=== PATIENT | male | born 1990 | race American Indian/Alaskan Native ===

== ENCOUNTER 2017-11-06 15:23 | Observation (INO) | payer BC ==
[2017-11-06] MEDS ORDERED: Benzoin Compound Tincture (60 ml) ONE (15:41)
[2017-11-06] MEDS ORDERED: Albuterol 0.083% Inhal Sol (2.5 mg/3 mL) UD IH STA ×3 (16:03→17:42)
[2017-11-06] MEDS ORDERED: Albuterol-Ipratrop 3 mg / 0.5 (3 ml) UD INH STA (16:03)
[2017-11-06] MEDS ORDERED: Albuterol-Ipratrop 3 mg / 0.5 (3 ml) UD ONE ×2 (16:11→17:46)
[2017-11-06 16:15] LABS: BASO # 0.2 K/uL (0.0-0.2); BASO % 1.6 % (0.0-2.0); EOS # 0.5 K/uL (0.0-0.7); EOS % 4.6 % (0.0-4.0); HEMOGLOBIN 15.8 g/dL (12.0-18.0); LYMPH # 1.8 K/uL (1.0-4.3); LYMPH % 15.1 % (20.0-40.0); MEAN CELL VOLUME 91.6 fL (80.0-94.0); MEAN CORPUSCULAR HEMOGLOBIN 31.6 pg (27.0-31.0); MEAN CORPUSCULAR HGB CONC 34.5 g/dL (33.0-37.0); MEAN PLATELET VOLUME 9.5 fL (7.2-11.7); MONO # 0.9 K/uL (0.0-0.8); MONO % 7.4 % (0.0-10.0); NEUT # 8.4 K/uL (1.8-7.0); NEUT % 71.3 % (50.0-75.0); NRBC % 0.1 % (0.0-2.0); RED CELL DISTRIBUTION WIDTH 12.5 % (11.5-14.5); WHITE BLOOD COUNT 11.8 K/uL (4.8-10.8)
[2017-11-06] MEDS ORDERED: Albuterol 0.083% Inhal Sol (2.5 mg/3 mL) UD ONE (16:20)
[2017-11-06 16:30] LABS: ALB/GLOB RATIO 1.1 (1.0-2.1); ALBUMIN 4.2 g/dL (3.5-5.0); CALCIUM 9.2 mg/dl (8.6-10.4); GFR AFRICAN-AMERICAN > 60; GFR NON-AFRICAN AMERICAN > 60
[2017-11-06 16:34] LABS: ALT/SGPT 28 U/L (21-72); AST/SGOT 33 U/L (17-59); BLOOD UREA NITROGEN 15 mg/dL (9-20)
--- NOTE | 2017-11-06 16:48 | C.PDOC ---
History Of Present Illness 27-year-old male, presents to the emergency department, [place] from work with complaints of shortness of breath and wheezing since yesterday. Patient states symptoms worsened today. He was using his inhaler with minimal relief. Patient has never been admitted or intubated for asthma. He denies chest pain, fever, back pain, nausea/vomiting or any other associated symptoms. No other complaints at this time. Patient was given Solumedrol, Mag sulfate and duoneb on field. No other complaints at this time. Time Seen by Provider: 11/06/17 15:36 Chief Complaint (Nursing): Respiratory Distress History Per: Patient, EMS History/Exam Limitations: no limitations Current Symptoms Are (Timing): Still Present Past Medical History Reviewed: Historical Data, Nursing Documentation, Vital Signs Vital Signs: Last Vital Signs Temp 97.6 F 11/06/17 17:05 Pulse 101 H 11/06/17 17:05 Resp 13 11/06/17 17:05 BP 108/64 11/06/17 17:05 Pulse Ox 96 11/06/17 17:05 - Medical History PMH: Asthma Denies: Chronic Kidney Disease Family History: States: No Known Family Hx - Social History Hx Alcohol Use: Yes Hx Substance Use: No Review Of Systems Constitutional: Negative for: Fever Cardiovascular: Positive for: Other (chest tightness). Negative for: Chest Pain , Palpitations Respiratory: Positive for: Shortness of Breath, Wheezing Gastrointestinal: Negative for: Vomiting Musculoskeletal: Negative for: Neck Pain, Back Pain Skin: Negative for: Rash Neurological: Negative for: Weakness, Numbness, Headache, Dizziness Physical Exam - Physical Exam Appears: Non-toxic, No Acute Distress, Other (speaking in full sentences) Skin: Normal Color, Warm, Dry, No Rash Head: Atraumatic, Normacephalic Eye(s): bilateral: PERRL Nose: Normal Oral Mucosa: Moist Lips: Normal Appearing Neck: Normal ROM Cardiovascular: Rhythm Regular (Tachycardic), No Murmur Respiratory: No Decreased Breath Sounds, No Accessory Muscle Use, No Rales, No Rhonchi, Wheezing (diffuse, expiratory) Gastrointestinal/Abdominal: Soft, No Tenderness Extremity: Normal ROM, No Deformity, No Swelling Neurological/Psych: Oriented x3, Normal Speech ED Course And Treatment - Laboratory Results Result Diagrams: 11/06/17 16:12 11/06/17 16:12 ECG: Interpreted By Me, Viewed By Me (NSR 100bpm, normal axis, RBBB, no acute ST changes) ECG Interpretation: No Acute Changes O2 Sat by Pulse Oximetry: 94 Pulse Ox Interpretation: Abnormal Progress Note: Chest X-Ray, Bloodwork ordered and reviewed. Patient treated with Albuterol. Duoneb and Terbutaline. Disposition - Disposition Forms: [facility] (Lao) - Scribe Statement The provider has reviewed the documentation as recorded by the Scribe (Felipa Nick) All medical record entries made by the Scribe were at my direction and personally dictated by me. I have reviewed the chart and agree that the record accurately reflects my personal performance of the history, physical exam, medical decision making, and the department course for this patient. I have also personally directed, reviewed, and agree with the discharge instructions and disposition.
--- NOTE | 2017-11-06 17:08 | RAD ---
PROCEDURE: CHEST RADIOGRAPH, 1 VIEW HISTORY: SOB COMPARISON: Addendum the mid its body extra-articular at with current at bedtime FINDINGS: LUNGS: Clear. PLEURA: No pneumothorax or pleural fluid seen. CARDIOVASCULAR: Normal. OSSEOUS STRUCTURES: No significant abnormalities. VISUALIZED UPPER ABDOMEN: Normal. OTHER FINDINGS: None. IMPRESSION: No active disease.
[2017-11-06] MEDS ORDERED: Albuterol 0.083% Inhal Sol (2.5 mg/3 mL) UD IH PRN (18:26)
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
[2017-11-06] MEDS ORDERED: MethylPREDNISolone 40 mg Vial ONE (23:31)
[2017-11-06] MEDS: MethylPREDNISolone 40 mg Vial IVP SCH (23:35)
[2017-11-07] MEDS: Azithromycin 500 MG in Sodium Chloride 0.9% 250 ML IVPB SCH ×2 (01:06→11:00)
[2017-11-07] MEDS ORDERED: Albuterol-Ipratrop 3 mg / 0.5 (3 ml) UD ONE (01:52)
[2017-11-07] MEDS ORDERED: Albuterol-Ipratrop 3 mg / 0.5 (3 ml) UD INH SCH (02:00)
[2017-11-07] MEDS ORDERED: MethylPREDNISolone 40 mg Vial ONE (06:58)
[2017-11-07] MEDS: MethylPREDNISolone 40 mg Vial IVP SCH ×2 (06:59→13:34)
[2017-11-07] MEDS ORDERED: Fluticasone-Salmeterol 250-50mcg Diskus INH SCH (08:00)
[2017-11-07] MEDS ORDERED: Enoxaparin 40 mg Syringe SC SCH (10:00)
[2017-11-07 10:38] VITALS: BP 123/64; RESP 20; TEMP 98.1
--- NOTE | 2017-11-07 12:44 | CP.PCM.PN ---
Subjective - Date & Time of Evaluation Date of Evaluation: 11/07/17 Time of Evaluation: 09:00 - Subjective Subjective: clinically same Objective - Vital Signs/Intake and Output Vital Signs (last 24 hours): Temp Pulse Resp BP Pulse Ox 98.1 F 76 20 123/64 97 11/07/17 09:50 11/07/17 09:50 11/07/17 09:50 11/07/17 09:50 11/07/17 09:50 - Medications Medications: Current Medications Albuterol Sulfate (Albuterol 0.083% Inhal Silvia (2.5 Mg/3 Ml) Ud) 2.5 mg IH Q2 PRN PRN Reason: Wheezing Albuterol/Ipratropium (Duoneb 3 Mg/0.5 Mg (3 Ml) Ud) 3 ml INH RQ6 [facility] Last Admin: 11/07/17 01:56 Dose: 3 ml Enoxaparin Sodium (Lovenox) 40 mg SC DAILY [facility] Last Admin: 11/07/17 11:00 Dose: Not Given Azithromycin 500 mg/ Sodium (Chloride) 250 mls @ 250 mls/hr IVPB DAILY [facility] PRN Reason: Protocol Last Admin: 11/07/17 11:00 Dose: 250 mls/hr Ceftriaxone Sodium 1 gm/ (Sodium Chloride) 100 mls @ 100 mls/hr IVPB DAILY [facility] PRN Reason: Protocol Last Admin: 11/07/17 10:20 Dose: 100 mls/hr Methylprednisolone (Solu-Medrol) 40 mg IVP Q8 [facility] Last Admin: 11/07/17 06:59 Dose: 40 mg Montelukast Sodium (Singulair) 10 mg PO HS [facility] Pantoprazole Sodium (Protonix Inj) 40 mg IVP DAILY [facility] Last Admin: 11/07/17 11:00 Dose: 40 mg Fluticasone/Salmeterol (Advair Diskus 250/50) 1 puff INH RQ12 [facility] - Labs Labs: 11/06/17 16:12 11/06/17 16:12 - Constitutional Appears: Well - Head Exam Head Exam: ATRAUMATIC, NORMAL INSPECTION, NORMOCEPHALIC - Eye Exam Eye Exam: EOMI, Normal appearance, PERRL Pupil Exam: NORMAL ACCOMODATION, PERRL - ENT Exam ENT Exam: Mucous Membranes Moist, Normal Exam - Neck Exam Neck Exam: Full ROM, Normal Inspection. absent: Lymphadenopathy - Respiratory Exam Respiratory Exam: Decreased Breath Sounds - Cardiovascular Exam Cardiovascular Exam: REGULAR RHYTHM, +S1, +S2 - GI/Abdominal Exam GI & Abdominal Exam: Soft, Diminished Bowel Sounds - Rectal Exam Rectal Exam: Deferred
[2017-11-07 13:01] VITALS: PULSE 102
[2017-11-07 14:35] VITALS: O2SAT 100
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
== END 2017-11-07 15:15 | disposition left against medical advice (07) ==
LOC: C.ER 15:23 → C.9E 18:25 → C.5S 11-07 09:13
PROVIDERS: ADMIT Internal Medicine Nephrology; ATTEND Internal Medicine Nephrology
DX: J45.909 Unspecified asthma, uncomplicated (principal); Z87.891 Personal history of nicotine dependence
CPT/HCPCS: 71045; 80053; 85025; 94640; 96365; 96372; 96374; C9113; G0378; J0456; J0696; J1650; J2920; J3105; J7050